=== PATIENT | male | born 1995 | race Caucasian/White ===

== ENCOUNTER 2021-06-14 15:20 | Emergency (ER) | payer OTHER ==
[~2021-06-14 15:20] MED LIST: BACTRIM DS TAB1 EACH PO; KEFLEX CAP 500500 MG PO; PERCOCET 5/325 T1 EA PO; PERCOCET 7.5-31 EACH PO; PYRIDIUM200 MG PO; ZOFRAN4 MG PO
[2021-06-14 16:58] LABS: HEMOGLOBIN 15.2 gm/dl (14.0-17.5); RED BLOOD COUNT 5.22 M/UL (4.20-5.50); WHITE BLOOD COUNT 7.7 K/UL (4.5-11.0)
[2021-06-14 17:47] LABS: BUN/CREATININE RATIO 10 (0-10)
== END 2021-06-14 18:23 | disposition home or self-care (01) ==
LOC: ER1 15:20
PROVIDERS: Physician Assistant
DX: U07.1 COVID-19 (principal); J45.909 Unspecified asthma, uncomplicated; F17.290 Nicotine dependence, other tobacco product, uncomplicated; Z87.442 Personal history of urinary calculi; Z88.8 Allergy status to other drugs, medicaments and biological substances
CPT/HCPCS: 71045; 80053; 82550; 82553; 83874; 84484; 85025; 93005; 99285; U0003

== ENCOUNTER 2022-04-22 14:40 | Emergency (ER) | payer SELFPAY ==
[2022-04-22 15:35] LABS: HEMOGLOBIN 14.3 gm/dl (14.0-17.5); RED BLOOD COUNT 4.81 M/UL (4.20-5.50); WHITE BLOOD COUNT 7.1 K/UL (4.5-11.0)
[2022-04-22] MEDS ORDERED: ZOFRAN ODT 4 MG4 MG GT (19:37)
== END 2022-04-22 19:42 | disposition home or self-care (01) ==
LOC: ER1 14:40
PROVIDERS: Physician Assistant
DX: N17.9 Acute kidney failure, unspecified (principal); E86.0 Dehydration; I10 Essential (primary) hypertension; J45.909 Unspecified asthma, uncomplicated; Z88.8 Allergy status to other drugs, medicaments and biological substances; Z87.442 Personal history of urinary calculi
CPT/HCPCS: 80048; 80053; 81001; 83690; 85025; 96374; 99284; J1885

== ENCOUNTER → 2022-04-26 | Outpatient (CLI) | payer SELFPAY ==
[~2022-04-26] MED LIST changes: +ZOFRAN ODT 4 MG4 MG GT
[2022-04-26 18:00] LABS: BUN/CREATININE RATIO 13 (0-10)
== END ==
LOC: LAB 16:12
PROVIDERS: Physician Assistant
DX: R19.7 Diarrhea, unspecified (principal); R79.89 Other specified abnormal findings of blood chemistry
CPT/HCPCS: 36415; 80048